=== PATIENT | female | born 1980 | race Caucasian/White ===

== ENCOUNTER 2019-08-25 10:05 | Day surgery (SDC) | payer BC ==
[~2019-08-25 10:05] MED LIST: ACETAMINOPHEN 1,000 MG/100 ML BTL IVPB ONE; CEFAZOLIN 2 Gram 2 GM/50 ML BAG IVPB ONE; FAMOTIDINE 20MG TABLET PO ONE; METOCLOPRAMIDE 10 MG TABLET PO ONE; SCOPOLAMINE 1 PATCH TDSY TD ONE
[2019-08-25] MEDS ORDERED: PROPOFOL 10 MG/ML VIAL IV ONE (10:06)
[2019-08-25] MEDS ORDERED: LIDOCAINE 2% MDV (20MG/ML) 20ML VIAL IV ONE (10:06)
[2019-08-25] MEDS ORDERED: MIDAZOLAM HCL 2MG/2ML VIAL IV ONE (10:06)
[2019-08-25] MEDS ORDERED: ONDANSETRON HCL IV 4 MG/2 ML VIAL IVP ONE (10:06)
[2019-08-25] MEDS ORDERED: DEXAMETHASONE 4 MG/ML 1ML VIAL IVP ONE (10:06)
[2019-08-25] MEDS ORDERED: RINGERS SOLUTION,LACTATED 1,000 ML IV ONE ×2 (12:45→13:04)
[2019-08-25] MEDS ORDERED: BUPIVACAINE 0.5% W/EPI MPF 30 ML VIAL SQ ONE (13:10)
[2019-08-25] MEDS ORDERED: METHYLPREDNISOLONE 40MG/VIAL IU ONE (13:10)
[2019-08-25] MEDS ORDERED: MORPHINE SULFATE (PACU ONLY) 4 MG/ML VIAL IU ONE (13:10)
[2019-08-25] MEDS ORDERED: IBUPROFEN 400 MG TABLET PO ONE (13:58)
[2019-08-25] MEDS ORDERED: ACETAMINOPHEN 500 MG TABLET PO ONE (13:59)
--- NOTE | 2019-08-30 08:20 | Operative Note ---
DATE OF SURGERY: 08/25/2019 PREOPERATIVE DIAGNOSIS: Internal derangement of the left knee. POSTOPERATIVE DIAGNOSES: 1. Grade 3 chondromalacia of patella. 2. Unstable cartilage lesion, medial femoral condyle. OPERATION: Left knee arthroscopy with intraarticular debridement. STAFF SURGEON: Daniel Posey MD ANESTHESIA: General. PREPARATION: Chloraprep. INDIVIDUAL CONSIDERATIONS: None. PROCEDURE: The patient was taken to the operating room and placed supine on the operating room table. The patient had a successful induction with general anesthetic. The left lower extremity was prepped and draped in the usual fashion. The patient had a superolateral inflow cannula placed. Skin was infiltrated with 0.5% Marcaine with epinephrine prior. The knee was inflated with normal saline. An inferomedial and an inferolateral portal were made in a similar fashion. The arthroscope was introduced through the inferolateral portal up into the pouch. Patellofemoral joint showed an ulcer on the lateral half of the patella with unstable cartilage, luckily not down to bone. This was smoothed off with a shaver. The notch was intact. Medially, there was a flap tear of articular cartilage centered at about 45 degrees of flexion just lateral to the midline about the size of a quarter. This was debrided off with a shaver to stable cartilage, again luckily not down to bone. The meniscus and the tibial plateau were intact. Cruciates were normal. Lateral compartment structures were normal. The knee was then irrigated out with saline to remove loose floating debris. Portals were closed with lars, and 15 mL of 0.5% Marcaine with epinephrine along with 4 mg of morphine and 40 mg of Depo-Medrol were injected into the knee. A sterile bulky compressive dressing was applied. The patient tolerated procedure well. Needle and sponge counts were correct. Estimated blood loss was minimal. She was taken back to recovery in good condition. There were no complications. JIHAN
== END 2019-08-25 14:25 | disposition home or self-care (01) ==
LOC: SUR 10:05
PROVIDERS: ATTEND Orthopaedic Surgery
DX: M23.92 Unspecified internal derangement of left knee (principal); M22.42 Chondromalacia patellae, left knee; M94.9 Disorder of cartilage, unspecified; K21.9 Gastro-esophageal reflux disease without esophagitis
CPT/HCPCS: 81025; J1030; J2270; J2405; J7120